=== PATIENT | male | born 1985 | race Two or more races ===

== ENCOUNTER 2017-10-28 00:52 | Emergency (ER) | payer OTHER ==
[~2017-10-28] VITALS: Ht 167.6 cm; Wt 90.5 kg
[2017-10-28] MEDS ORDERED: AUGMENTIN875 MG PO (04:04)
[2017-10-28] MEDS ORDERED: SALINE NOSE SPR45 M1 BOTH NARES (04:04)
[2017-10-28] MEDS ORDERED: TYLENOL EXTRA500 MG PO (04:04)
[2017-10-28] MEDS ORDERED: CEPACOL SORE T1 EAC9 MM (04:04)
[2017-10-28] MEDS ORDERED: ROXICODONE5 MG PO (04:04)
[2017-10-28 04:20] VITALS: BP 144/90
== END 2017-10-28 04:20 | disposition home or self-care (01) ==
LOC: EME 00:52 → EXP 00:52
DX: J01.90 Acute sinusitis, unspecified (principal); J40 Bronchitis, not specified as acute or chronic; K08.89 Other specified disorders of teeth and supporting structures; K50.90 Crohn's disease, unspecified, without complications; I10 Essential (primary) hypertension
CPT/HCPCS: 99281; 99284

== ENCOUNTER 2017-12-13 00:05 | Emergency (ER) | payer OTHER ==
[~2017-12-13] VITALS: Ht 167.6 cm; Wt 92.2 kg
[~2017-12-13 00:05] MED LIST: AUGMENTIN875 MG PO; CEPACOL SORE T1 EAC9 MM; ROXICODONE5 MG PO; SALINE NOSE SPR45 M1 BOTH NARES; TYLENOL EXTRA500 MG PO
[2017-12-13 01:12] LABS: HEMATOCRIT 43.3 % (38.0-50.0); MCH 31.1 PG (29.0-34.0); MCHC 34.6 G/DL (30.0-36.0); MCV 89.6 FL (86-99); PLATELET COUNT 355 K/uL (156-360); RBC DIS.WIDTH-CV 12.1 % (11.8-14.6); RBC DIS.WIDTH-SD 39.8 % (39-53); RED BLOOD COUNT 4.83 M/uL (4.00-5.50)
[2017-12-13 01:25] LABS: ALBUMIN 4.5 g/dL (3.2-4.8); CHLORIDE 108 mEq/L (99-109); POTASSIUM 4.1 mEq/L (3.7-5.4); SODIUM 139 mEq/L (136-147)
[2017-12-13 01:27] LABS: GLUCOSE 76 mg/dL (70-99); TOTAL PROTEIN 7.8 g/dL (6.4-8.3)
[2017-12-13 01:29] LABS: TOTAL BILIRUBIN 0.3 mg/dL (0.0-1.0)
[2017-12-13 01:31] LABS: ALKALINE PHOSPHATASE 69 IU/L (3-129); GFR ESTIMATE (CALCULATED) > 59 mL/min/ (58.99-99999)
[2017-12-13 01:32] LABS: AST (GOT) 28 IU/L (2-34); UREA NITROGEN (BUN) 13 mg/dL (9-23)
[2017-12-13 01:34] LABS: ALT (GPT) 36 IU/L (3-49)
[2017-12-13 01:46] LABS: ERTH.SED.RATE 19 MM/HR (0-15)
[2017-12-13] MEDS ORDERED: MEDROL DOSEPAK4 MG PO (02:51)
[2017-12-13 03:08] VITALS: BP 158/96
[2017-12-13 03:08] LABS: C-REACTIVE PROTEIN 6.7 MG/L (0-10)
== END 2017-12-13 03:10 | disposition home or self-care (01) ==
LOC: EME 00:05
PROVIDERS: Physician Assistant
DX: I77.6 Arteritis, unspecified (principal); I10 Essential (primary) hypertension; K50.90 Crohn's disease, unspecified, without complications
CPT/HCPCS: 80053; 85027; 85651; 86140; 99281; 99283; J7512